=== PATIENT | female | born 1950 | race Caucasian/White ===

== ENCOUNTER 2017-09-14 15:02 | Emergency (ER) | payer OTHER, MEDICARE ==
[~2017-09-14] VITALS: Ht 162.6 cm; Wt 74.2 kg
[~2017-09-14 15:02] MED LIST: Amoxicillin/Clavulanate Potas PO; CITA20TA4 PO; CLON0.5T3 PO; LEVO50TA PO; LISI-461 PO; LPT/20 PO
[2017-09-14 15:11] VITALS: BP 144/98; TEMP 36.7; Ht 162.6 cm; Wt 74.2 kg
--- NOTE | 2017-09-14 15:56 | DIAGNOSTIC IMAGING REPORT ---
CHEST 2 VIEWS ROUTINE CLINICAL HISTORY: 67 years-old Female presenting with eval for pna. TECHNIQUE: PA and lateral views of the chest were obtained. COMPARISON: 07/11/2015. FINDINGS: Atherosclerosis of aortic arch. Cardiac silhouette normal in size. Lungs and pleural spaces clear. Degenerative changes of the thoracic spine. Upper abdomen normal. IMPRESSION: 1. No acute cardiopulmonary disease. Electronically signed by: Nicholas Pena M.D. 09/14/2017 3:54 PM Dictated Date/Time: 09/14/2017 3:54 PM
[2017-09-14 16:18] VITALS: PULSE 66; O2SAT 94
--- NOTE | 2017-09-14 16:28 | EMERGENCY ROOM VISIT NOTE ---
History Report prepared by Jayleen: Brianna Gonzales Under the Supervision of: Dr. Sven Ramos M.D. First contact with patient: 15:18 Chief Complaint: COUGH Stated Complaint: EAR INFECTION, COUGH SORE THROAT Nursing Triage Summary: patient dx with bilateral ear infections and cold last friday. patient followed up with PCP on and was given prednisone and amoxicillin and flonase. patient states she seems to not be getting any better. sore throat, chest congestion, cough and occasional ear pain. History of Present Illness The patient is a 67 year old female who presents to the Emergency Room with complaints of persistent cough starting 2 weeks ago. She has been feeling sick with sore throat, congestion, and cough for the past 2 weeks. She has also had left ear pain. She notes that she is prone to ear infections. Her cough is productive. She has not looked at the color of her sputum. She also lost her voice and is concerned that her voice has not returned back to normal over the past week. She has been becoming increasingly fatigued and is sleeping more than usual. She was seen at an urgent care in [place] 8 days ago and started on a 10 day course of amoxicillin and Flonase. She is still taking the amoxicillin and has had improvement in her ear pain. Her ear is still bothering her occasionally. She followed up with her doctor 3 days ago and was started on prednisone. She has pain in her right rib pain with coughing and deep breaths. She has noticed that when she lies on her right side she coughs and she can feel the pain in her right ribs. She denies any fever, chest pain, or SOB. She had some swelling in her ankles after the 5 hour flight from [place] which has now resolved. She denies any history of blood clots. Source of History: patient Onset: 2 weeks ago Position: other (global) Quality: other (cough) Timing: other (persistent) Associated Symptoms: + sorethroat, + fatigue, No fevers, No chest pain, No SOB Note: Pt reports ear pain, congestion. Review of Systems See HPI for pertinent positives & negatives. A total of 10 systems reviewed and were otherwise negative. Past Medical & Surgical Medical Problems: (1) Hyperlipidemia (2) Hypertension Family History Hypertension Social History Smoking Status: Never Smoker Alcohol Use: none Drug Use: none Marital Status: Housing Status: lives with family Occupation Status: employed Current/Historical Medications Scheduled Atorvastatin (Atorvastatin Calcium), 20 MG PO HS Citalopram Hydrobromide (Citalopram Hydrobromide), 20 MG PO HS Clonazepam (Klonopin), 0.5 MG PO HS Levothyroxine Sodium (Synthroid), 50 MCG PO DAILY Lisinopril (Lisinopril), 10 MG PO HS Allergies Coded Allergies: Sympathomimetics (Verified Adverse Reaction, Intermediate, PALPITATIOJNS, 09/14/17) Ephedrine (Unverified Adverse Reaction, Unknown, Palpatations, 09/14/17) Uncoded Allergies: UNKNOWN OTC COLD MED (Allergy, Unknown, RASH, 09/14/17) Physical Exam Vital Signs Date Time Temp Pulse Resp B/P (MAP) Pulse Ox O2 Delivery O2 Flow Rate FiO2 09/14/17 16:18 66 94 09/14/17 15:11 36.7 73 20 144/98 97 Room Air Physical Exam Constitutional: Vital signs reviewed. Eyes: Pupils are equal round reactive to light. Conjunctiva are noninjected. ENT: Pharynx is clear without erythema or exudate. Mucous membranes are moist. Neck supple without meningeal signs. Respiratory: Clear to auscultation bilaterally. Breath sounds are equal bilaterally. Cardiovascular: Regular rate and rhythm. No rubs or gallops. GI: Soft, nondistended and nontender. Bowel sounds are present. Musculoskeletal: Left sided posterior rib tenderness on palpation. No peripheral edema. No tenderness to the lower extremities. Integumentary: No cyanosis. Neurological: The patient is awake and alert. No focal deficits. Psychiatric: Normal affect. Medical Decision & Procedures ER Provider Diagnostic Interpretation: X-ray results as stated below per interpretation by me and the radiologist: CHEST 2 VIEWS ROUTINE CLINICAL HISTORY: 67 years-old Female presenting with eval for pna. TECHNIQUE: PA and lateral views of the chest were obtained. COMPARISON: 07/11/2015. FINDINGS: Atherosclerosis of aortic arch. Cardiac silhouette normal in size. Lungs and pleural spaces clear. Degenerative changes of the thoracic spine. Upper abdomen normal. IMPRESSION: 1. No acute cardiopulmonary disease. Electronically signed by: Nicholas Pena M.D. 09/14/2017 3:54 PM Dictated Date/Time: 09/14/2017 3:54 PM ED Course 1520: The patient was evaluated in room C7. A complete history and physical exam was performed. 1609: Upon reevaluation, the patient was resting comfortably. I discussed ita's findings with her and reviewed return instructions. She verbalized agreement of the treatment plan. She was discharged home. Medical Decision This is a 67-year-old female who presents with cold symptoms including cough, sore throat and congestion with rib pain. Differential diagnoses include URI, bronchitis, pneumonia, pleural effusion, otitis media, pulmonary embolism. I did perform a limited focused review of portions of the patient's old chart on the electronic medical record. The patient has had no recent pertinent visits to this hospital. I did evaluate the patient as noted above. Patient is presenting with cold symptoms for the past 2 weeks. She does have some rib pain on the right side but her pain is reproducible and only present when she takes a deep breath or coughs. She is not short of breath and denies any chest pain. I did not feel pulmonary embolism was very likely. I did obtain a rapid strep test which is negative. I did order and personally review the patient's chest x-ray as described above. There is no evidence of pneumonia. I did discuss the test results with the patient. I did feel at this time that her symptoms are likely viral in nature and will take some time to go away. I did recommend that she follow closely with her doctor. She was also told to return immediately should she develop any symptoms that may be consistent with pulmonary embolism such as chest pain or shortness of breath. She was discharged in good condition. Medication Reconcilliation Current Medication List: was personally reviewed by me Blood Pressure Screening Patient's blood pressure: Elevated blood pressure Blood pressure disposition: Referred to PCP Impression Primary Impression: Acute bronchitis Additional Impressions: Pharyngitis Rib pain on right side Scribe Attestation The scribe's documentation has been prepared under my direct and personally reviewed by me in its entirety. I confirm that the note above accurately reflects all work, treatment, procedures, and medical decision making performed by me. Departure Information Dispostion Home / Self-Care Referrals Malia Cardoza PA-C Forms HOME CARE DOCUMENTATION FORM, IMPORTANT VISIT INFORMATION Patient Instructions Bronchitis Acute, My [facility], Sore Throats Self Care Additional Instructions You have been examined and treated today on an emergency basis only. This is not a substitute for, or an effort to provide, complete comprehensive medical care. It is impossible to recognize and treat all injuries or illnesses in a single emergency department visit. It is therefore important that you follow up closely with your physician. Call as soon as possible for an appointment. Return for worsening symptoms or if you develop fever, vomiting, chest pain, shortness of breath or any other concerning symptoms. Problem Qualifiers Primary Impression: Acute bronchitis Bronchitis organism: unspecified organism Qualified Codes: J20.9 - Acute bronchitis, unspecified Additional Impressions: Pharyngitis Pharyngitis/tonsillitis etiology: unspecified etiology Qualified Codes: J02.9 - Acute pharyngitis, unspecified
== END 2017-09-14 16:15 | disposition home or self-care (01) ==
LOC: C.EDC 15:28
DX: J20.9 Acute bronchitis, unspecified (principal); R07.81 Pleurodynia; E78.5 Hyperlipidemia, unspecified; I10 Essential (primary) hypertension; Z82.49 Family history of ischemic heart disease and other diseases of the circulatory system

== ENCOUNTER → 2017-12-03 | Day surgery (SDC) | payer OTHER, MEDICARE ==
[2017-11-28 12:13] VITALS: Ht 163.8 cm; Wt 72.7 kg
[~2017-12-03] VITALS: Ht 163.8 cm; Wt 72.7 kg
[~2017-12-03] MED LIST changes: +500ML BSS 0.3ML EPI 1:1000PF IRRIG ONE; +ACETAMINOPHEN 325 MG TAB PO PRN; +AMVISC PLUS 0.8ML SYRINGE INT OCU ONE; +ATOR-22 PO; +ATROPINE SULFATE 0.1 MG/ML 5ML SYR IV PRN; -Amoxicillin/Clavulanate Potas PO; +BSS FLUSH ONE; -CLON0.5T3 PO; +CLON1TAB3 PO; +ENDOCOAT 0.85ML SYRINGE INT OCU ONE; +EpINEphrine INJ 1MG/ML AMP 1 MG/ML AMP ONE; +FENTANYL CITRATE INJ 50 MCG/1 ML 2 ML VIAL ONE; +LACTATED RINGER'S 1000ML 500 ML IV SCH; +LIDOCAINE 4% OP SOLN DROP CHARGE ONE; +LIDOCAINE 4% OP SOLN DROP CHARGE OPR SCH; +LIDOCAINE HCL 1% MPF 2 ML VIAL ONE; -LPT/20 PO; +MIDAZOLAM HCL 1 MG/ML 2ML VIAL ONE; +MIX: 4ML BSS 1ML EPI 1:1000 PF TOP ONE; +MOXIFLOXACIN OPH SOLN PER DROP CHARGE ONE; +OMEP10CA4 PO; +POVIDONE-IODINE OP SOLN 30 ML BTL ONE; +PRLSR20 PO; +PROPARACAINE 0.5% OP SOLN PER DROP CHARGE OPR SCH; +TOBRAMYCIN/DEXAMETHASONE OPH OINT PER APPLN CHARGE ONE
[2017-12-03] MEDS: PHENYLEPHRINE HCL 2.5% OP SOLN PER DROP CHARGE OPR SCH ×3 (09:26→09:36)
[2017-12-03] MEDS: TROPICAMIDE 1% OP SOLN PER DROP CHARGE OPR SCH ×3 (09:27→09:37)
[2017-12-03] MEDS: CYCLOPENTOLATE HCL 1% OP SOLN PER DROP CHARGE OPR SCH ×3 (09:28→09:38)
[2017-12-03] MEDS: MOXIFLOXACIN OPH SOLN PER DROP CHARGE OPR SCH ×3 (09:29→09:39)
--- NOTE | 2017-12-03 09:41 | History & Physical Bridge - SC ---
H&P Re-Evaluation Bridge Note: I have examined the patient, reviewed the History & Physical and in the interval since the performance of the History & Physical I have noted the following changes of clinical significance: No changes noted
--- NOTE | 2017-12-03 10:59 | [facility] Post Operative Brief Note ---
Immediate Operative Summary Operative Date Dec 03, 2017. Pre-Operative Diagnosis Right Eye Cataract Post-Operative Diagnosis same Procedure(s) Performed Right Cataract Phacoemulsification With Intraocular Lens Implant Surgeon Dr. Zoya Cox Live Study Manager Surgeon(s) 0 Estimated Blood Loss 0 Findings Consistent with Post-Op Diagnosis Specimens none Anesthesia Type MAC Complication(s) none Disposition Accompanied Pt To Recovery: no Disposition:
[2017-12-03 11:00] VITALS: TEMP 36.7
--- NOTE | 2017-12-03 11:00 | [facility] Operative Report ---
Operative Report Date of Service Dec 03, 2017. Operative Report DATE OF OPERATION: 12/03/17 PREOPERATIVE DIAGNOSIS: Senile nuclear cataract and astigmatism, right eye POSTOPERATIVE DIAGNOSIS: Senile nuclear cataract and astigmatism, right eye PROCEDURE PERFORMED: Phacoemulsification with toric intraocular lens implantation, right eye SURGEON: Dr. Adi Cox ANESTHESIA: Topical with 1% intracameral lidocaine and monitored anesthesia care COMPLICATIONS: None DESCRIPTION OF PROCEDURE: After positively identifying the patient both verbally and by wristband in the preoperative area, the right eye was marked as the operative eye. Using a Robomarker, the 105 degree axis was marked after placing a drop of proparacaine. The patient was then brought back to the operating room by the anesthesia and nursing staff where they were given a drop of tetracaine and betadine into the operative eye. They were then sterilely prepped and draped in the standard fashion typical for ophthalmic surgery. Steri-strips were placed along the upper eyelids to keep the lashes back, and a lid speculum was placed into the operative eye. At this point, a documented time out was performed with members of the ophthalmology, nursing, and anesthesia staffs all agreeing upon the correct patient, correct location for surgery, correct procedure, and correct type and power of intraocular lens to be implanted. The microscope was then swung into position. Then, a paracentesis wound was made using a sideport blade. Then, in sequence, 1% preservative-free lidocaine followed by Endocoat viscoelastic was injected into the anterior chamber. Next , the main incision was made with a keratome blade in triplanar fashion. A sharp cystotome was introduced into the eye and used to create a tear in the anterior capsule, which was directed into a continuous curvilinear capsulorrhexis using Utrata forceps. Hydrodissection was then performed with BSS on a flat-tip cannula. Next, the phacoemulsification handpiece was introduced into the eye and used to remove the nucleus in a [id number] fashion. This was done without complication and then the irrigation-aspiration handpiece was introduced into the eye and used to remove all remaining cortical and epinuclear material. Amvisc was then injected into the anterior chamber as well as into the capsular bag and using the lens injector system, a [id number] 13.0 D lens, serial number [id number], and expiration date 05/2019 was injected into the capsular bag and rotated into the correct position to correctly line up with the toric marking. Next, the irrigation-aspiration handpiece was used to remove all remaining Amvisc. BSS was used to hydrate the main wound, and then BSS was injected into the paracentesis site to reach physiologic pressure and then the main wound was checked and found to be watertight. The patient was given drops of Vigamox and tobradex ointment into the operative eye, and then the surrounding area was cleaned and dried. A clear plastic shield was placed over the eye and the patient was then sat up and taken from the operating room by the anesthesia staff having tolerated the procedure well and suffering no complications. DISPOSITION: The patient was returned to the recovery room in stable condition. I attest to the content of the Intraoperative Record and any orders documented therein. Any exceptions are noted below.
--- NOTE | 2017-12-03 11:01 | Discharge Instructions-SurgCtr ---
Discharge Instructions Date of Service Dec 03, 2017. Visit Reason for Visit: Right Cataract Discharge Discharge Diagnosis / Problem: right cataract Discharge Goals Goal(s): Decrease discomfort, Improve function Activity Recommendations Activity Limitations: as noted below Anesthesia . Post Anesthesia Instructions: If you have had General Anesthesia or IV Sedation: * Do not drive today. * Resume driving when surgeon permits. * Do not make important decisions or sign legal documents today. * Call surgeon for: 1. Temperature elevations greater than 101 degrees F. 2. Uncontrollable pain. 3. Excessive bleeding. 4. Persistent nausea and vomiting. 5. Medication intolerance (nausea, vomiting or rash). * For nausea and vomiting use only clear liquids such as: tea, soda, bouillon until nausea subsides, then gradually increase diet as tolerated. * If you have any concerns or questions, call your surgeon's office. If physician is unavailable and it is an emergency, call 911 or go to the nearest emergency room. . Instructions / Follow-Up Instructions / Follow-Up ACTIVITY RECOMMENDATIONS: * Light activities. * You may walk outside, read, watch television. * You may notice redness on the white part of the eye and some blurry vision - this is normal. MEDICATIONS: Resume previous medications unless instructed otherwise by your surgeon. Start all eye drops at 1 pm today: * Eye drops (today): Prednisone - one drop in operative eye every 2 hours while awake Polytrim - one drop in operative eye every 2 hours while awake Prolensa - one drop in operative eye daily SPECIAL CARE INSTRUCTIONS: * Tape plastic shield over eye to sleep at night. Call your doctor at with any concerns or problems. FOLLOW UP VISIT: Follow-up with Dr Cox at [place] office as scheduled. Diet Recommendations Home Diet: no limitations Procedures Procedures Performed: Right Cataract Phacoemulsification With Intraocular Lens Implant Pending Studies Studies pending at discharge: no Medical Emergencies . Who to Call and When: Medical Emergencies: If at any time you feel your situation is an emergency, please call 911 immediately. . Non-Emergent Contact Non-Emergency issues call your: Surgeon . . "Provider Documentation" section prepared by Adi Cox. .
[2017-12-03 11:22] VITALS: BP 120/78; PULSE 65; O2SAT 96
--- NOTE | 2017-12-03 11:22 | Anesthesia Progress Nt - [facility] ---
Anesthesia Post Op Note Date & Time Dec 03, 2017 at 11:22 Vital Signs Pain Intensity: 0 Vital Signs Past 12 Hours Date Time Temp Pulse Resp B/P (MAP) Pulse Ox O2 Delivery O2 Flow Rate FiO2 12/03/17 11:00 36.7 65 16 122/84 (97) 98 Room Air 12/03/17 09:19 36.6 81 16 122/86 (98) 96 Room Air Notes Mental Status: alert / awake / arousable, participated in evaluation Pt Amnestic to Procedure: Yes Nausea / Vomiting: adequately controlled Pain: adequately controlled Airway Patency, RR, SpO2: stable & adequate BP & HR: stable & adequate Hydration State: stable & adequate Anesthetic Complications: no major complications apparent
== END | disposition home or self-care (01) ==
LOC: X.SURG 08:59
PROVIDERS: ATTEND Ophthalmology
DX: H25.11 Age-related nuclear cataract, right eye (principal); H52.201 Unspecified astigmatism, right eye; I10 Essential (primary) hypertension; F32.9 Major depressive disorder, single episode, unspecified; E78.00 Pure hypercholesterolemia, unspecified; Z83.3 Family history of diabetes mellitus

== ENCOUNTER → 2017-12-17 | Day surgery (SDC) | payer OTHER, MEDICARE ==
[2017-12-11 15:39] VITALS: Ht 163.8 cm; Wt 72.7 kg
[~2017-12-17] VITALS: Ht 163.8 cm; Wt 72.7 kg
[~2017-12-17] MED LIST changes: -FENTANYL CITRATE INJ 50 MCG/1 ML 2 ML VIAL ONE; +LIDOCAINE 4% OP SOLN DROP CHARGE OPL SCH; -LIDOCAINE 4% OP SOLN DROP CHARGE OPR SCH; +ONDANSETRON INJ 2 MG/ML 2 ML VIAL IV PRN; -PRLSR20 PO; +PROPARACAINE 0.5% OP SOLN PER DROP CHARGE OPL SCH; -PROPARACAINE 0.5% OP SOLN PER DROP CHARGE OPR SCH
[2017-12-17] MEDS: PHENYLEPHRINE HCL 2.5% OP SOLN PER DROP CHARGE OPL SCH ×3 (07:48→08:02)
[2017-12-17] MEDS: TROPICAMIDE 1% OP SOLN PER DROP CHARGE OPL SCH ×3 (07:49→08:03)
[2017-12-17] MEDS: CYCLOPENTOLATE HCL 1% OP SOLN PER DROP CHARGE OPL SCH ×3 (07:50→08:04)
[2017-12-17] MEDS: MOXIFLOXACIN OPH SOLN PER DROP CHARGE OPL SCH ×3 (07:52→08:06)
--- NOTE | 2017-12-17 08:53 | [facility] Post Operative Brief Note ---
Immediate Operative Summary Operative Date Dec 17, 2017. Pre-Operative Diagnosis Cataract Left Eye Post-Operative Diagnosis Same Procedure(s) Performed Left Cataract Phacoemulsification With Intraocular Lens Implant; Toric Lens Surgeon Dr. Cox Radio Frequency Engineer Surgeon(s) None Estimated Blood Loss 0ml Findings Consistent with Post-Op Diagnosis Specimens None Anesthesia Type MAC Complication(s) none Disposition Accompanied Pt To Recovery: no Disposition:
[2017-12-17 08:54] VITALS: TEMP 36.4
--- NOTE | 2017-12-17 08:54 | [facility] Operative Report ---
Operative Report Date of Service Dec 17, 2017. Operative Report DATE OF OPERATION: 12/17/17 PREOPERATIVE DIAGNOSIS: Senile nuclear cataract and astigmatism, left eye POSTOPERATIVE DIAGNOSIS: Senile nuclear cataract and astigmatism, left eye PROCEDURE PERFORMED: Phacoemulsification with toric intraocular lens implantation, left eye SURGEON: Dr. Adi Cox ANESTHESIA: Topical with 1% intracameral lidocaine and monitored anesthesia care COMPLICATIONS: None DESCRIPTION OF PROCEDURE: After positively identifying the patient both verbally and by wristband in the preoperative area, the left eye was marked as the operative eye. Using a Robomarker, the 94 degree axis was marked after placing a drop of proparacaine. The patient was then brought back to the operating room by the anesthesia and nursing staff where they were given a drop of tetracaine and betadine into the operative eye. They were then sterilely prepped and draped in the standard fashion typical for ophthalmic surgery. Steri-strips were placed along the upper eyelids to keep the lashes back, and a lid speculum was placed into the operative eye. At this point, a documented time out was performed with members of the ophthalmology, nursing, and anesthesia staffs all agreeing upon the correct patient, correct location for surgery, correct procedure, and correct type and power of intraocular lens to be implanted. The microscope was then swung into position. Then, a paracentesis wound was made using a sideport blade. Then, in sequence, 1% preservative-free lidocaine followed by Endocoat viscoelastic was injected into the anterior chamber. Next , the main incision was made with a keratome blade in triplanar fashion. A sharp cystotome was introduced into the eye and used to create a tear in the anterior capsule, which was directed into a continuous curvilinear capsulorrhexis using Utrata forceps. Hydrodissection was then performed with BSS on a flat-tip cannula. Next, the phacoemulsification handpiece was introduced into the eye and used to remove the nucleus in a [id number]-[id number] fashion. This was done without complication and then the irrigation-aspiration handpiece was introduced into the eye and used to remove all remaining cortical and epinuclear material. Amvisc was then injected into the anterior chamber as well as into the capsular bag and using the lens injector system, a [id number] 14.5 D lens, serial number [id number], and expiration date 09/2018 was injected into the capsular bag and rotated into the correct position to correctly line up with the toric marking. Next, the irrigation-aspiration handpiece was used to remove all remaining Amvisc. BSS was used to hydrate the main wound, and then BSS was injected into the paracentesis site to reach physiologic pressure and then the main wound was checked and found to be watertight. The patient was given drops of Vigamox and tobradex ointment into the operative eye, and then the surrounding area was cleaned and dried. A clear plastic shield was placed over the eye and the patient was then sat up and taken from the operating room by the anesthesia staff having tolerated the procedure well and suffering no complications. DISPOSITION: The patient was returned to the recovery room in stable condition. I attest to the content of the Intraoperative Record and any orders documented therein. Any exceptions are noted below.
--- NOTE | 2017-12-17 08:55 | Discharge Instructions-SurgCtr ---
Discharge Instructions Date of Service Dec 17, 2017. Visit Reason for Visit: Cataract Left Eye Discharge Discharge Diagnosis / Problem: left cataract Discharge Goals Goal(s): Decrease discomfort, Improve function Activity Recommendations Activity Limitations: as noted below Anesthesia . Post Anesthesia Instructions: If you have had General Anesthesia or IV Sedation: * Do not drive today. * Resume driving when surgeon permits. * Do not make important decisions or sign legal documents today. * Call surgeon for: 1. Temperature elevations greater than 101 degrees F. 2. Uncontrollable pain. 3. Excessive bleeding. 4. Persistent nausea and vomiting. 5. Medication intolerance (nausea, vomiting or rash). * For nausea and vomiting use only clear liquids such as: tea, soda, bouillon until nausea subsides, then gradually increase diet as tolerated. * If you have any concerns or questions, call your surgeon's office. If physician is unavailable and it is an emergency, call 911 or go to the nearest emergency room. . Instructions / Follow-Up Instructions / Follow-Up ACTIVITY RECOMMENDATIONS: * Light activities. * You may walk outside, read, watch television. * You may notice redness on the white part of the eye and some blurry vision - this is normal. MEDICATIONS: Resume previous medications unless instructed otherwise by your surgeon. Start all eye drops at 11 am today: * Eye drops (today): Prednisone - one drop in operative eye every 2 hours while awake Polytrim - one drop in operative eye every 2 hours while awake Prolensa - one drop in operative eye daily SPECIAL CARE INSTRUCTIONS: * Tape plastic shield over eye to sleep at night. Call your doctor at with any concerns or problems. FOLLOW UP VISIT: Follow-up with Dr Cox at [facility] as scheduled. Diet Recommendations Home Diet: no limitations Procedures Procedures Performed: Left Cataract Phacoemulsification With Intraocular Lens Implant; Toric Lens Pending Studies Studies pending at discharge: no Medical Emergencies . Who to Call and When: Medical Emergencies: If at any time you feel your situation is an emergency, please call 911 immediately. . Non-Emergent Contact Non-Emergency issues call your: Surgeon . . "Provider Documentation" section prepared by Adi Cox. .
--- NOTE | 2017-12-17 09:15 | Anesthesiology Progress Note ---
Anesthesia Post Op Note Date & Time Dec 17, 2017 at 09:14 Vital Signs Pain Intensity: 0 Vital Signs Past 12 Hours Date Time Temp Pulse Resp B/P (MAP) Pulse Ox O2 Delivery O2 Flow Rate FiO2 12/17/17 08:54 36.4 63 16 125/79 (94) 96 Room Air 12/17/17 07:32 36.5 65 16 126/84 (98) 93 Room Air Notes Mental Status: alert / awake / arousable, participated in evaluation Pt Amnestic to Procedure: Yes Nausea / Vomiting: adequately controlled Pain: adequately controlled Airway Patency, RR, SpO2: stable & adequate BP & HR: stable & adequate Hydration State: stable & adequate Anesthetic Complications: no major complications apparent
[2017-12-17 09:20] VITALS: BP 121/82; PULSE 63; O2SAT 96
== END | disposition home or self-care (01) ==
LOC: X.SURG 06:48
PROVIDERS: ATTEND Ophthalmology
DX: H25.12 Age-related nuclear cataract, left eye (principal); H52.202 Unspecified astigmatism, left eye; I10 Essential (primary) hypertension; K21.9 Gastro-esophageal reflux disease without esophagitis; F32.9 Major depressive disorder, single episode, unspecified; E78.00 Pure hypercholesterolemia, unspecified; Z88.6 Allergy status to analgesic agent; Z88.8 Allergy status to other drugs, medicaments and biological substances

== ENCOUNTER 2017-12-29 09:06 | Emergency (ER) | payer OTHER, MEDICARE ==
[~2017-12-29] VITALS: Ht 165.1 cm; Wt 74.8 kg
[~2017-12-29 09:06] MED LIST changes: -500ML BSS 0.3ML EPI 1:1000PF IRRIG ONE; -ACETAMINOPHEN 325 MG TAB PO PRN; -AMVISC PLUS 0.8ML SYRINGE INT OCU ONE; -ATROPINE SULFATE 0.1 MG/ML 5ML SYR IV PRN; -BSS FLUSH ONE; -ENDOCOAT 0.85ML SYRINGE INT OCU ONE; -EpINEphrine INJ 1MG/ML AMP 1 MG/ML AMP ONE; -LACTATED RINGER'S 1000ML 500 ML IV SCH; -LIDOCAINE 4% OP SOLN DROP CHARGE ONE; -LIDOCAINE 4% OP SOLN DROP CHARGE OPL SCH; -LIDOCAINE HCL 1% MPF 2 ML VIAL ONE; -MIDAZOLAM HCL 1 MG/ML 2ML VIAL ONE; -MIX: 4ML BSS 1ML EPI 1:1000 PF TOP ONE; -MOXIFLOXACIN OPH SOLN PER DROP CHARGE ONE; -ONDANSETRON INJ 2 MG/ML 2 ML VIAL IV PRN; -POVIDONE-IODINE OP SOLN 30 ML BTL ONE; -PROPARACAINE 0.5% OP SOLN PER DROP CHARGE OPL SCH; -TOBRAMYCIN/DEXAMETHASONE OPH OINT PER APPLN CHARGE ONE
[2017-12-29 09:12] VITALS: TEMP 37.2; Ht 165.1 cm; Wt 74.8 kg
--- NOTE | 2017-12-29 09:53 | DIAGNOSTIC IMAGING REPORT ---
CHEST 2 VIEWS ROUTINE CLINICAL HISTORY: 67 years-old Female presenting with cough not improving over 2 weeks, headache, fatigue. TECHNIQUE: PA and lateral views of the chest were obtained. COMPARISON: 09/14/2017. FINDINGS: Atherosclerosis of the aortic arch. Cardiac silhouette normal in size. Mild bronchial wall thickening suggested. Lungs and pleural spaces clear. Degenerative changes of the thoracic spine. Upper abdomen normal. IMPRESSION: 1. Mild bronchial wall thickening could suggest bronchitis or reactive airways. No focal infiltrate to suggest pneumonia. Electronically signed by: Nicholas Pena M.D. 12/29/2017 9:52 AM Dictated Date/Time: 12/29/2017 9:51 AM
--- NOTE | 2017-12-29 10:09 | EMERGENCY ROOM VISIT NOTE ---
History Report prepared by Jayleen: Jeanie Engel Under the Supervision of: Dr. Deshawn Marcelino D.O. First contact with patient: 09:18 Chief Complaint: COUGH Stated Complaint: COUGH,WALKER,TIRED History of Present Illness The patient is a 67 year old female who presents to the Emergency Room with complaints of a worsening cough beginning CRIME SPECIALIST. The patient states that she has been having cold symptoms for the past couple of weeks. She reports a headache, rhinorrhea, congestion, cough, ear pain, and fatigue. She has felt feverish but has not checked her temperature. She has been taking ibuprofen for her symptoms. The patient rates her pain as a 2/10 in severity. She has not seen her PCP for these symptoms. The patient denies chest pain and pain or swelling in her legs. She has had similar symptoms in the past with pneumonia. Source of History: patient Onset: CRIME SPECIALIST Position: chest Symptom Intensity: 2/10 Quality: other (cough) Timing: worsening Associated Symptoms: + headache, + fatigue, No chest pain Note: Pt reports rhinorrhea, congestion and ear pain. Review of Systems See HPI for pertinent positives & negatives. A total of 10 systems reviewed and were otherwise negative. Past Medical & Surgical Medical Problems: (1) Hyperlipidemia (2) Hypertension Family History Hypertension Social History Smoking Status: Never Smoker Alcohol Use: none Drug Use: none Marital Status: Housing Status: lives with family Occupation Status: employed Current/Historical Medications Scheduled Albuterol Hfa (Ventolin Hfa), 1 PUFF INH Q4 Atorvastatin (Lipitor), 20 MG PO QPM Citalopram Hydrobromide (Citalopram Hydrobromide), 1 TAB PO QAM Clonazepam (Klonopin), 1 MG PO BID Levothyroxine Sodium (Synthroid), 50 MCG PO QAM Lisinopril (Zestril), 10 MG PO HS Omeprazole (Prilosec), 10 MG PO BID Oseltamivir Phosphate (Tamiflu), 75 MG PO BID Allergies Coded Allergies: Ibuprofen (Verified Allergy, Unknown, RASH, 12/29/17) Levofloxacin (Verified Allergy, Unknown, PALPITATION, 12/29/17) Sympathomimetics (Verified Adverse Reaction, Intermediate, PALPITATIOJNS, 12/29/17) Ephedrine (Unverified Adverse Reaction, Unknown, Palpatations, 12/29/17) Uncoded Allergies: UNKNOWN OTC COLD MED (Allergy, Unknown, RASH, 09/14/17) Physical Exam Vital Signs Date Time Temp Pulse Resp B/P (MAP) Pulse Ox O2 Delivery O2 Flow Rate FiO2 12/29/17 11:00 66 16 126/86 97 12/29/17 09:25 Room Air 12/29/17 09:12 37.2 86 20 157/95 96 Room Air Physical Exam GENERAL: Patient is awake, alert, and in no acute distress. Patient is resting comfortably and showing no signs of anxiety EYES: The conjunctivae are clear. The pupils are round and reactive. EARS, NOSE, MOUTH AND THROAT: TMs clear bilaterally. The nose is without any evidence of any deformity. Clear rhinorrhea bilaterally. Mucous membranes are moist tongue is midline. Posterior oropharynx is clear. NECK: The neck is nontender and supple. RESPIRATORY: Normal respiratory effort is noted there is no evidence of wheezing rhonchi or rales CARDIOVASCULAR: Regular rate and rhythm noted there no murmurs rubs or gallops normal S1 normal S2 GASTROINTESTINAL: The abdomen is soft. Bowel sounds are present in all quadrants. Abdomen is nontender MUSCULOSKELETAL/EXTREMITIES: There is no evidence of gross deformity full range of motion is noted in the hips and shoulders SKIN: There is no obvious evidence of any rash. There are no petechiae, pallor or cyanosis noted. NEUROLOGIC: Patient is awake alert and oriented x3 strength is symmetric patellar reflexes are 2+ bilaterally Medical Decision & Procedures ER Provider Diagnostic Interpretation: Radiology results as stated below per my review and radiologist interpretation: CHEST 2 VIEWS ROUTINE CLINICAL HISTORY: 67 years-old Female presenting with cough not improving over 2 weeks, headache, fatigue. TECHNIQUE: PA and lateral views of the chest were obtained. COMPARISON: 09/14/2017. FINDINGS: Atherosclerosis of the aortic arch. Cardiac silhouette normal in size. Mild bronchial wall thickening suggested. Lungs and pleural spaces clear. Degenerative changes of the thoracic spine. Upper abdomen normal. IMPRESSION: 1. Mild bronchial wall thickening could suggest bronchitis or reactive airways. No focal infiltrate to suggest pneumonia. Electronically signed by: Nicholas Pena M.D. 12/29/2017 9:52 AM Dictated Date/Time: 12/29/2017 9:51 AM Laboratory Results Test 12/29/17 09:35 Influenza Type A Antigen POS for Influ A (NEG) Influenza Type B Antigen Neg for Influ B (NEG) Laboratory results per my review. ED Course 0918: The patient was evaluated in room A11B. A complete history and physical examination were performed. 1032: I reassessed the patient at this time. She is feeling better and resting comfortably. I discussed the results and treatment plan with the patient. I answered all pertaining questions that she had. She expressed understanding and verbalized agreement. The patient will be discharged home. Medical Decision Differential diagnosis: Etiologies such as infections, reactive airway disease, pneumonia, pneumothorax , COPD, CHF, cardiac ischemia, pulmonary embolism, musculoskeletal, gastrointestinal, as well as others were entertained. Nursing notes reviewed. The patient is a 67-year-old female who presented to the emergency department for an evaluation of cough. The patient complained of upper respiratory symptoms. Her chest x-ray did not reveal any definite signs of infiltrate. Her flu swab was positive. I do feel that her overall condition does fit with influenza. She was encouraged to continue Tylenol as directed for fever and body aches. She was also encouraged to follow-up with her family doctor for reevaluation but return to the emergency department immediately if symptoms change worsen or the need arises. I discussed patient's laboratory and radiographic studies with her. Medication Reconcilliation Current Medication List: was personally reviewed by me Blood Pressure Screening Patient's blood pressure: Normal blood pressure Impression Primary Impression: Influenza Additional Impression: Bronchitis Scribe Attestation The scribe's documentation has been prepared under my direction and personally reviewed by me in its entirety. I confirm that the note above accurately reflects all work, treatment, procedures, and medical decision making performed by me. Departure Information Dispostion Home / Self-Care Prescriptions Oseltamivir Phosphate (Tamiflu) 75 Mg Cap 75 MG PO BID, #10 CAP Prov: Deshawn Marcelino, DO 12/29/17 Albuterol Hfa (VENTOLIN HFA) 200 Puffs/36500 Mcg Aers 1 PUFF INH Q4, #1 INHALER Prov: Deshawn Marcelino, DO 12/29/17 Referrals Malia Cardoza PA-C (PCP) Forms HOME CARE DOCUMENTATION FORM, IMPORTANT VISIT INFORMATION Patient Instructions ED Flu, My [facility] Additional Instructions Continue to use Tylenol as directed for fever and body aches. Call your family doctor to schedule a follow-up appointment. Try to avoid any strenuous activity. Problem Qualifiers
[2017-12-29 10:15] LABS: INFLUENZA B ANTIGEN Neg for Influ B (NEG)
[2017-12-29] MEDS ORDERED: OSEL75CA23 PO (10:31)
[2017-12-29] MEDS ORDERED: VNTHFA/IN INH (10:31)
[2017-12-29 11:00] VITALS: BP 126/86; PULSE 66; O2SAT 97
== END 2017-12-29 11:08 | disposition home or self-care (01) ==
LOC: C.EDB 09:08 → C.EDA 11:08
DX: J10.1 Influenza due to other identified influenza virus with other respiratory manifestations (principal); J20.9 Acute bronchitis, unspecified; E78.5 Hyperlipidemia, unspecified; I10 Essential (primary) hypertension

== ENCOUNTER 2024-05-06 14:04 | Observation (INO) ==
--- NOTE | 2024-05-05 10:04 | Anesthesiology Consultation ---
Date of Service May 05, 2024 Assessment & Plan (1) Encounter for pre-operative examination: - Infectious disease screening: Per assessment on 05/05/24: No known recent infectious disease contacts or current infectious disease symptoms. - Dementia: PAT RN phone interview indicates that ASHLEY is daughter Светлана Singh but also notes that patient signs own consents. Chart Review Chart Review: Acceptable Risk for Surgery and Patient NOT seen in Pre Admission Testing History Surgery Operation Date: 05/06/24 07:00 Proposed Procedures p Left Distal Radius Open Reduction and Internal Fixation - Raj Guzman MD Height/Weight Height: 5 ft 6 in Weight: 54.431 kg Allergies Allergy/AdvReac Type Severity Reaction Status Date / Time ibuprofen Allergy Mild Rash Verified 05/05/24 13:51 levofloxacin Allergy Mild Palpitation Verified 05/05/24 13:51 s NSAIDS (Non-Steroidal Allergy Mild Rash Verified 05/05/24 13:51 Anti-Inflamma ephedrine AdvReac Mild Palpitation Verified 05/05/24 13:51 s UNKNOWN OTC COLD MED Allergy Mild Rash Uncoded 05/05/24 13:51 Sympathomimetics AdvReac Intermediate Palpitation Uncoded 05/05/24 13:51 s Medications Home Medications Medication Instructions Recorded Confirmed Last Taken levothyroxine 50 mcg tablet 50 mcg PO QAM #90 tabs 05/30/22 05/05/24 Unknown donepezil 10 mg tablet 10 mg PO QAM 04/28/24 05/05/24 Unknown olmesartan 5 mg tablet 5 mg PO QAM 04/28/24 05/05/24 Unknown atorvastatin 40 mg tablet 40 mg PO QAM 05/05/24 05/05/24 Unknown cholecalciferol (vitamin D3) 50 50 mcg PO QAM 05/05/24 05/05/24 Unknown mcg (2,000 unit) capsule citalopram 20 mg tablet 20 mg PO QAM 05/05/24 05/05/24 Unknown lisinopril 10 mg tablet 10 mg PO QAM 05/05/24 05/05/24 Unknown omeprazole 20 mg capsule,delayed 20 mg PO QAM 05/05/24 05/05/24 Unknown release Past Medical History Medical History Anxiety Diffuse cerebral atrophy Fracture of left distal radius (03/2024) Distal radial and ulnar fractures GERD without esophagitis H/O degenerative disc disease History of dementia Per daughter, patient signs own consents + daughter Светлана Singh is POA Hyperlipidemia Hypertension Hypothyroidism Prediabetes "Resolved" s/p weight loss Snores "unable to complete sleep study" Past Family History Family History Father Lung cancer Lung disease Sister Thyroid cancer Diabetes Aunt Breast cancer Ovarian cancer Grandfather (Maternal) Colorectal cancer Other Colonic polyp Denies family history of Prostate cancer Myocardial infarction Past Surgical History Surgical History History of anesthesia reaction Aspiration pneumonia after colonoscopy 5+ years ago requiring admission History of bilateral cataract extraction and lens placement History of surgery on arm (2009) left arm, external fixator History of tonsillectomy and adenoidectomy Hx of blepharoplasty due to eye ptosis Hx of colonoscopy Social History Smoking Status: Never smoker Do You Dip or Chew Tobacco: No Hx Alcohol Use: Yes Alcohol type: hard liquor Hx Substance Use: No Testing Laboratory Results 04/25/24 WBC 7.24 H/H 12.5/38.8 PLATELETS 186 SODIUM 141 POTASSIUM 4.3 CHLORIDE 106 CO2 26 BUN 22 CREATININE 0.9 GLUCOSE 108 UA negative Electrocardiogram Date: 04/25/24 NSR at 77bpm. Possible lateral infarct, age undetermined. Increased R/S ratio in V1, consider early transition or posterior infarct. Compared to 09/27/2022 ECG, NS TWA no longer evident in anterior leads per systems software developer comparison. Chest X-Ray Date: 04/25/24 Findings: + NAD Scoliosis and degenerative change in the spine. Echocardiogram Date: 07/20/20 LVEF 58%. Mild MR/AR. LV wall motion normal. Stress Test Date: 10/11/22 Type: DSE Negative DSE/stress EKG for ischemia at 90% MPHR. PACs. No stress-induced chest pain. LVEF 65-69%. Mild MR/TR. Other Testing CT head/brain Date: 04/25/24 Chronic age related changes but no evidence of acute intracranial pathology.
[2024-05-06] MEDS: LR 60ML/HR IV SCH (12:57)
[~2024-05-06 14:04] MED LIST changes: -ATOR-22 PO; +ATROPINE SULFATE 0.1 MG/ML 10ML SYR IV PRN; -CITA20TA4 PO; -CLON1TAB3 PO; -LEVO50TA PO; -LISI-461 PO; -OMEP10CA4 PO; +ONDANSETRON INJ 2 MG/ML 2 ML VIAL IV PRN; +ROPIVACAINE 0.5% 5 MG/ML 30 ML VIAL ONE; +ePHEDrine sulfate 50 MG/ML AMP IV PRN; +fentaNYL citrate PF 100 MCG/2 ML VIAL IV PRN
[2024-05-06] MEDS: ACETAMINOPHEN 500 MG TAB PO SCH (14:46)
[2024-05-06] MEDS: LR 15ML/HR IV SCH (14:46)
[2024-05-06] MEDS ORDERED: ePHEDrine sulfate 50 MG/ML AMP IV PRN (15:23)
[2024-05-06] MEDS ORDERED: ATROPINE SULFATE 0.1 MG/ML 10ML SYR IV PRN (15:23)
[2024-05-06] MEDS ORDERED: HYDROmorphone INJ 1 MG/ML SYRINGE IV PRN (15:23)
[2024-05-06] MEDS ORDERED: fentaNYL citrate PF 100 MCG/2 ML VIAL IV PRN (15:23)
[2024-05-06] MEDS ORDERED: ONDANSETRON INJ 2 MG/ML 2 ML VIAL IV PRN ×2 (15:23→16:14)
[2024-05-06] MEDS ORDERED: fentaNYL citrate PF 100 MCG/2 ML VIAL ONE (15:24)
[2024-05-06] MEDS ORDERED: MIDAZOLAM HCL 1 MG/ML 2ML VIAL ONE (15:24)
--- NOTE | 2024-05-06 15:52 | History & Physical Bridge Note ---
Date of Service May 06, 2024 History & Physical Bridge Note I have examined the patient, reviewed the History & Physical and in the interval since the performance of the History & Physical I have noted the following changes of clinical significance: no changes noted
[2024-05-06] MEDS: ceFAZolin 2000MG 2,000 MG/15 ML SYR IV SCH (15:54)
[2024-05-06] MEDS ORDERED: ONDANSETRON INJ 2 MG/ML 2 ML VIAL ONE ×2 (16:13→16:19)
[2024-05-06] MEDS ORDERED: PROPOFOL IV EMULSION 10 MG/ML 20 ML VIAL IV ONE (16:13)
[2024-05-06] MEDS ORDERED: ACETAMINOPHEN 1,000 MG/100 ML VIAL IV PRN (16:14)
[2024-05-06] MEDS ORDERED: METOCLOPRAMIDE HCL INJ 5 MG/ML 2 ML VIAL IV PRN (16:14)
[2024-05-06] MEDS ORDERED: MAGNESIUM HYDROXIDE SUSP 30 ML UDC PO PRN (16:14)
[2024-05-06] MEDS ORDERED: bisacodyL 10 MG SUPP PR PRN (16:14)
[2024-05-06] MEDS ORDERED: diphenhydrAMINE Capsule 25 MG CAP PO PRN (16:14)
[2024-05-06] MEDS ORDERED: NALOXONE HCL 0.4 MG/1 ML VIAL/CARP IV PRN (16:14)
[2024-05-06] MEDS ORDERED: PHENYLEPHRINE 100MCG/ML 10ML SYR IV ONE (16:44)
[2024-05-06] MEDS ORDERED: GLYCOPYRROLATE 0.2 MG/ML VIAL ONE (16:44)
[2024-05-06] MEDS: BUPIVACAINE/EPINEPHRINE 0.5% MPF 1:200,000 30 ML VIAL ONE (17:48)
--- NOTE | 2024-05-06 18:14 | Operative Report ---
PG Post Operative Report Pre & Post Diagnosis Operation Date: 05/06/24 07:00 Pre-Op Diagnosis: Fracture of Left Distal Radius Post-Op Diagnosis: Fracture of Left Distal Radius I identified the patient and participated in the time-out.: Yes Procedure Operation Date: 05/06/24 07:00 Actual Procedures p Left Distal Radius Open Reduction and Internal Fixation(Left) - Raj Guzman MD Surgeon Raj Guzman MD Homicide Investigator Lesia Schaeffer PA-C Estimated Blood Loss 25 Findings See Below Comminuted and osteoporotic metaphyseal distal radius fracture in the setting with chronic partial malunion. Stabilized with all Synthes implants: 2.4 variable angle 2column volar distal radius locking plate (5-hole head/2- hole shaft) 2.4 mm cortex screws of 12 mm length x 2. 2.4 variable angle locking screws 12 mm, 16 mm x 2, 20 mm x 5 Specimens None Anesthesia Type General Regional Complications none Disposition Accompanied Patient To Recovery: Yes Disposition: Recovery Room Indications 73-year-old female presented after fall on outstretched hand with a displaced distal radius fracture. She had a history of previous distal radius fracture treated nonsurgically with residual loss of volar tilt. Given the degree of displacement, did offer elective open reduction internal fixation. Her family was concerned about balance issues and her living alone with early dementia. After discussion of the risks, benefits and alternatives of surgical treatment, we agreed that correction of the displacement with internal fixation may assist with the balance issues and her determination to be independent versus prolonged casting. Informed consent was obtained the clinic with the patient, and confirmed with her power of sales agent and daughter. Description of Procedure On the day of surgery, the patient was greeted in the preoperative holding area. The informed consent was reviewed and confirmed by myself and the patient. The patient identified the surgical site and was marked by me. The patient was then turned over to anesthesia. Anesthesia performed a regional anesthetic block with excellent effect. Patient was then taken to the operating place upon the OR table and anesthesia was induced. The airway was secured. The hand table was attached. Splint was taken down. We decontaminated the arm with a thorough scrub using alcohol on four by fours. A nonsterile tourniquet was placed on the forearm. The left upper extremities then prepped and draped usual sterile fashion for wrist surgery. Chloroprep was used. Surgical timeout was called by the circulating nurse and verified by all present. Antibiotics have been infused, and equipment was available and functional. An Esmarch was used to exsanguinate the extremity, and the tourniquet was inflated to 250 mmHg for a total time of about 70 minutes. An incision was marked and then made for the length of the volar plate. Subcutaneous dissection was carried out using Bovie electrocautery. We opened the FCR sheath, and then incised through the sub-sheath. Blunt dissection was carried down to the radial column. The pronator quadratus was thickened with eschar but intact. This was elevated, leaving a cuff for later repair.There was minimal hematoma as there was early healing. We exposed the fracture. Irrigation was carried out. A Bellona was used to reapproximate the palmar side fracture fragments. The Bellona was used to elevate the distal fragment and reduce it upon the proximal fragment cortical lassiter. The cortex was stable and there was some fragmentation. Fluoroscopic imaging confirmed reasonable provisional reduction. There was residual shortening of the radial styloid and chronic malunion from her previous nonsurgically treated fracture. There did appear to be adequate anabaptism of neutral tilt. Volar tilt was not able to be achieved from previous malunion. We then positioned the plate. Multiple fluoroscopic views were taken to ensure good reduction with translation of the distal fragment palmarly against the plate. Used multiple fluoroscopic views to adjust the plate. We then used the carpal translation maneuver to bring the distal fragment to the plate. The oblong hole on the shaft was then used. I fixed the plate to bone, but kept the screw loose enough to adjust the plate. Fluoroscopy was used to administrative judge reduction. The radial styloid had to be pulled out the length using longitudinal traction. The freer was used to adjust the cortical keys in the palmar side, and it seemed to lock in. There was noticeable osteoporosis with the palmar fragments being eggshelllike. We then used the variable angle guide to place the most distal and radial styloid screw. This was done under fluoroscopic guidance. We then placed the remainder of the distal row using the locking guide tower. The second row distal screws were then filled and is well given the osteoporosis. These were all locking screws. Then moved proximally to fasten the plate down to the shaft which further lever the distal fragment now that we had fixation. Locking screw was used at the most proximal hole. We confirmed length and reduction by multiple fluoroscopic views. Final fluoroscopic views were obtained in multiple planes. The second screw along the distal row seem to be close to the articular surface. It was likely safe but I repositioned it to be sure. The screw was backed out then redirected under power to a more proximally. This achieved good purchase in the length was good. The wound was then thoroughly irrigated. The tourniquet was left down for hemostasis. Bovie electrocautery was used minimally. Radial artery was intact. The pronator quadratus was reapproximated using 0 Vicryl stitches. Deep subcutaneous tissue was approximated using interrupted deep Vicryl stitches. The dermal layer was approximate using 3-0 Monocryl suture, followed by running 4-0 Monocryl subcuticular stitch. This is backed up by Steri- Strips. Wound was dressed with sterile Xeroform, sterile gauze, and ABD. Abundant web roll was placed. The arm was then placed in a short arm fiberglass cast that was then bivalved and overwrapped with an Hilario wrap. Patient tolerated the procedure well, recovered from sedation in the operating room, and was transported to the recovery area. Disposition: She will be nonweightbearing and remain in the bivalved cast until follow-up next week. We will plan to overwrap the cast or change it as necessary. Routine postoperative pain medications will be prescribed. Repeat x-rays were performed at the first follow-up appointment in 10-14 days. I attest to the content of the Intraoperative Record and any orders documented therein. Any exceptions are noted below.
--- NOTE | 2024-05-06 19:06 | Anesthesiology Progress Note ---
Date of Service May 06, 2024 Anesthesia Post Procedure Vital Signs Vital Signs: Temp Pulse Resp BP Pulse Ox O2 Del Method O2 Flow Rate 05/06/24 19:00 36.4 C L 76 16 191/103 H 93 Room Air 05/06/24 18:20 36.4 C L 62 18 185/102 H 96 Room Air 05/06/24 18:10 36.5 C 63 19 172/92 H 98 Nasal Cannula 2 05/06/24 18:00 66 18 170/92 H 98 Nasal Cannula 2 05/06/24 17:52 36 C L 65 15 151/97 H 93 Room Air 05/06/24 14:35 36.5 C 66 18 147/96 H 96 Room Air Transfer of Care Handoff Completed per policy Notes Mental Status: alert / awake / arousable and participated in evaluation Patient Amnestic to Procedure: Yes Nausea / Vomiting: adequately controlled Pain: adequately controlled Airway Patency, RR, SpO2: stable & adequate BP & HR: stable & adequate Hydration State: stable & adequate Anesthetic Complications: no major complications apparent and Pt Satisfied with anesthetic care
--- NOTE | 2024-05-06 19:25 | Fluoroscopy Report ---
FL wrist LT 2V CLINICAL HISTORY: LEFT ORIF WRIST COMPARISON STUDY: Left hand radiographs April 28, 2024. Left wrist radiographs April 25, 2024. FLUOROSCOPY TIME: 45.5 seconds. Ka, r: 0.95 mGy FLUOROSCOPIC IMAGES: 4 FINDINGS: Fluoroscopy was provided during open reduction and internal fixation of the distal left rad ial fracture with plate and screws. Fracture alignment appears near anatomic. The hardware is intact. There are no unexpected radiopaque foreign bodies. IMPRESSION: Fluoroscopy provided during open reduction and internal fixation of the distal left radi al fracture. ACT 112: Negative or not required by law. Electronically signed by: Freddy Ferreira M.D. 05/06/2024 7:24 PM
[2024-05-06] MEDS: DOCUSATE SODIUM 100 MG CAP PO SCH (20:47)
[2024-05-06] MEDS: SENNA 8.6 MG TAB PO SCH (20:47)
[2024-05-06] MEDS: SODIUM CHLORIDE 0.9% 1,000 ML IV SCH (20:48)
[2024-05-06] MEDS ORDERED: Nursing to Pharmacy Communication SCH (21:00)
--- OUTSIDE RECORDS SUMMARY | 2024-05-06 22:25 | External Medical Summary | Summary of Care ---
Author Name Unknown Organization [facility] Address [address] [place] [address] Phone [phone] Care Team Providers Care Trade Show Manager Name Role Phone Juliette Summers DO Primary Care Provi alberto Reason for Visit * Reason Onset Date Comments Appointment 04/26/2024 Encounter Details Date Type Department Care Team (Late st Contact Info) Description 04/26/2024 [address], [address] [place] [address] [place] [id number] Services, Scheduling [address] [place] [address] Appointment Allergies Active Allergy Reactions Criticality Noted Date Comments Acetaminophen 09/11/2017 rash Levofloxacin In D5w Rash 07/27/2015 Rash on abdomen Nsaids 03/30/2018 RASH Sympathomimetics 10/19/2001 ENTEX PSE-palpitations & rash documented as of this encounter (statuses as of 05/03/2024) Medications Medication Sig Dispensed Refills Start Date End Date Status Donepezil HCl 10 MG Oral Tablet (ARICEPT) Take 1/2 tablet (5mg) for 30 days, then increase to full tablet (10mg). Take with breakfast. 90 Tab 3 07/03/2020 Active Additional Information Patient taking differently: 10 mg Oral Daily(AM), (No instructions reported), Reported on 01/30/2021 Omeprazole 20 MG Oral Capsule Delayed Release (PriLOSEC)Indication s:Gastroesophageal reflux disease without esophagitis TAKE ONE CAPSULE BY MOUTH EVERY DAY 30 MINUTES BEFORE THE FIRST MEAL OF THE DAY 90 Cap 3 10/09/2020 Active Additional Information Patient taking differently: 20 mg Oral Daily(AM), This med should NOT be Crushed or Chewed, Reported on 01/30/2021 Olmesartan Medoxomil 5 MG Oral Tablet (Benicar)Indications :HTN, goal below 140/90 Take 5 mg by mouth daily. 90 Tab 11 10/17/2020 Active Citalopram Hydrobromide 20 MG Oral Tablet (CeleXA)Indications: Generalized anxiety disorder Take 1 Tab by mouth daily. 14 Tab 2 10/17/2020 Active Atorvastatin Calcium 20 MG Oral Tablet (Lipitor)Indications :Dyslipidemia, goal LDL below 130 TAKE ONE TABLET BY MOUTH EVERY DAY (THIS REPLACES SIMVASTATIN) 90 Tab 3 11/03/2020 Active Additional Information Patient taking differently: 20 mg Oral Daily(AM), (No instructions reported), Reported on 01/30/2021 Levothyroxine Sodium 50 MCG Oral Tablet (Levoxyl)Indications :Hypothyroidism, unspecified type TAKE 1 TABLET BY MOUTH DAILY AT LEAST 30 MINUTES PRIOR TO FIRST MEAL OF THE DAY OR OTHER MEDICATIONS 90 Tab 3 12/05/2020 Active Additional Information Patient taking differently: 50 mcg Oral [id number], (No instructions reported), Reported on 01/30/2021 documented as of this encounter (statuses as of 05/03/2024) Active Problems Problem Noted Date Diagnosed Date Emphysema lung 07/28/2020 Overview: On CXR 06/2020 + emphysematous changes, no symptoms, + secondhand smoke exposure as a child 10/17/2020: discussed diagnosis of COPD with the patient; use combivent PRN SOB/wheezing; declines PFT; stop singulair if post nasal drip is not improved after 30 days Syncope and collapse 07/19/2020 Overview: Jun 2020: echo mild MR, AR; zio patch occasional SVT and brief second degree AV block (ok per cardiology) Sep 2020: EEG ordered, pt declining Mild dementia 07/04/2020 Overview: Neurology 07/03/20: The most important diagnosis in this case is MCI vs mild dementia--she does have some potentially reversible contributions, incl untreated SAUL (possibly) and brain impairing medication (klnopin, for tremor, currently tapering). Her testing may be better than her daily ability. I suspect she may have Alzheimer's disease. MRI not revealing. Reversible labs OK. Diffuse cerebral atrophy 05/31/2020 Overview: MRI brain 04/2020 Slow transit constipation 12/31/2019 DDD (degenerative disc disease), lumbar 11/09/19 15 Overview: X ray 11/13: Moderate degenerative changes. Grade 1 anterolisthesis of L4 on L5. Torticollis, spasmodic 02/07/2014 Overview: Causing head tremor. Neurology recommended mysoline and botox injections. botox given 12/26/15 @ [facility] DDD (degenerative disc disease), cervical 2013 Overview: X ray c spine 08/11: Significant degenerative disc disease is present at C3-4, C4-5, and to a lesser degree at C5-6. PT provided improvement in symptoms. Acquired hypothyroidism 10/10/2010 Overview: Generic Dyslipidemia, goal LDL below 130 11/21/2009 Advance directive discussed with patient 005 Overview: No, Advance Directive brochure given to patient at prior appointment. HTN, goal below 140/90 06/17/2004 Overview: 01/06--stress echo--nml. 11/08--ekg--Sinus bradycardia,Cannot rule out Anterolateral infarct , age undetermined --[facility] stress echo. Gastroesophageal reflux disease without esophagi tis 10/19/2001 Chronic rhinitis 10/19/2001 GENERALIZED ANXIETY DIS 10/19/2001 Overview: zoloft caused insomnia documented as of this encounter (statuses as of 05/03/2024) Resolved Problems Problem Noted Date Diagnosed Date Resolved Date Transaminitis 09/24/2017 07/11/2020 Overview: 03/16: normal liver and gallbladder 04/15: negative hepatitis panel Spasmodic torticollis 04/04/20162016 Overview: botox per [facility] neuro Impaired fasting glucose 12/16/2013 Overview: 12/10 FBG = 107 Encounter for screening for osteoporosis 11/21/2009 09/11/2017 Overview: 08/07--dexa--nml rpt 4 yrs. ( fracture left wrist 05/07)--VD [id number]---43.9 02/11 t lumbar +0.8, femur -0.9; low risk; repeat 5 years Encounter for screening mamm ogram for breast cancer 11/21/2009 03/24/2017 Overview: 11/07-scattered fibroglandular densities.--12/06-same Screening for malignant neoplasm of cervix 11/21/2009 03/24/2017 Overview: 06/04, 10/06--pap --neg. Impaired fasting glucose 11/21/2009 Overview: 07/07--113 Special screening for malign ant neoplasms, colon 05/31/2009 06/17/2019 Overview: 03/30-Colonoscopy done by Dr. Reid. Findings: Redundant colon, hemorrhoids.Repeat 10 yrs. Colonoscopy 07/13: redundant normal colon; developed aspiration pneumonia so declines further colonoscopy ak dorsum right hand 02/21/2009 017 Chondrodermatitis R antihelix 06/17/2006 09/24/2017 Anxiety state 08/12/2012 documented as of this encounter (statuses as of 05/03/2024) Immunizations Name Administration Dates Next Due 06/01/2015,05/03/2014 09/01/2015 COVID-19 mRNA, LNP-s, No Pre serve, 2-Dose Series (KO-SU) 01/09/2021,12/15/2020 Pneumococcal Conjugate Vacc, 13 Valent (Prevnar) 11/03/2014 Pneumococcal Polysaccharide PPV23 (Pneumovax) 06/24/2013 Seasonal Influenza, PF, 6 M & above, IM , (FluLaval or Fluzone) 06/28/2020,06/17/2019,08/04/2018,11/0 11/2016 Seasonal Influenza, Quadriva lent, No Preserve, IM 08/26/2016,07/10/2015 Seasonal Influenza, Split, I IV3, With Preserve, Inj 07/20/2014,06/24/2013,07/10/2012,07/30,08/14/2010,10/21/2009,08/09/20 08,07/28/2007,08/01/2006 TD - Tetanus/Diptheria (ADULT) 09/05/1997 TDAP (age 10 and older)(Boostrix) 10/13/2013 Varicella Zoster Vaccine (Adult) 02/16/2010 Zoster Vaccine Recombinant (Shingrix) 10/22/2020 ,07/11/2020 documented as of this encounter Social History Tobacco Use Types Packs/Day Years Used Date Smoking Tobacco: Never Smokeless Tobacco: Never Comments:h/o passive smoke e xposure Alcohol Use Standard Drinks/Week Comments No 0 (1 standard drink = 0.6 oz pur e alcohol) PHQ-2 Answer Date Recorded PHQ-2 Score 3 12/09/2019 Exercise Vital Sign Answer Date Recorde d Days of Exercise per Week 0 days 2018 Minutes of Exercise per Session Not on file 06/17/2019 Hunger Vital Sign Answer Date Recorded Worried About Running Out of Food in the Last Ye ar Never true 12/09/2019 Ran Out of Food in the Last Year Never true 12/09/2019 Utilities Answer Date Recorded Do you have trouble paying y our heating, water, or electric bill? (Adult - for ages 18 years and over) Not on file 03/16/2024 Is your family able to pay t he heat, water, or electric bill? (Household - for ages 0-17 years) Not on file 03/16/2024 Does your family have access to good internet? (Household - for ages 0-17 years) Not on file 03/16/2024 Social Connections Answer Date Recorded How often do you feel lonely or isolated from those around you? (Adult - for ages 18 years and over) Not on file 03/16/2024 Sex and Gender Information Value Date Recorded Sex Assigned at Female 01/04/2019 10:31 AM EDT Gender Identity Female 01/04/2019 10:31 AM EDT Sexual Orientation Straight 01/04/2019 10 :31 AM EDT Job Start Date Occupation Industry Not on file Not on file Not on file documented as of this encounter Functional Status Functional Status Response Date of Assess ment Are you deaf or do you have serious difficulty h earing? No 07/19/2020 Are you blind or do you have serious difficulty seeing, even when wearing glasses? No 07/19/2020 Do you have serious difficul ty walking or climbing stairs? (5 years old or older) No 07/19/2020 Do you have difficulty dress ing or bathing? (5 years old or older) No 07/19/2020 Because of a physical, menta l, or emotional condition, do you have difficulty doing errands alone such as visiting a doctor s office or shopping? (15 years old or older) No 07/19/20 20 Cognitive Status Response Date of Assessm ent Because of a physical, menta l, or emotional condition, do you have serious difficulty concentrating, remembering, or making decisions? (5 years old or older) No 07/19/2020 documented as of this encounter Miscellaneous Notes * Telephone Encounter - Lesia Thompson TECH - 05/03/2024 3:00 PM EDT Orion Elizondo DO 04/27/24 11:03 AM Note I contacted the patient today for follow-up of her left distal radius fracture status post closed reduction on 04/25/2024 at [facility]. Patient reports that she is currently scheduled at [facility] for follow-up of her left wrist. She had a previous fracture of her distal radius which underwent surgical intervention years ago. She wanted to follow-up with the same provider. She reports her appointment is scheduled today. * Telephone Encounter - Jo Booth OSA - 04/27/2024 9:20 AM EDT Called left a message for patient that we have a walk in clinic. We our open from 8 am to 4:00 pm. * Telephone Encounter - Sydnee Saleh OSA - 04/26/2024 7:16 AM EDT Good Morning, Patient has a order for Other closed fracture of distal end of left radius, initial encounter Other closed fracture of distal end of left ulna, initial encounter DOI:04/24/24 fell went to [facility] 04/25/24 splinted notes an imaging in [facility].Please advise Thank you SAUL Uribe documented in this encounter Plan of Treatment Scheduled Procedures Name Priority Associated Diagnoses Date/Ti me COLONOSCOPY FLEXIBLE PROXIMA L DIAGNOSTIC Recall Family history of colonic polyps Health Maintenance Due Date Last Done Comments Albumin/Creatinine Ratio 1966 Alpha-1 Antitrypsin 1966 Colonoscopy 07/10/2020 07/10/2015, 07/10/2015 *COPD SEVERITY VERIFIED BY PFT 07/31/2020 Depression Screening 12/08/2020 12/09/2019 DXA Scan 02/14/2021 02/15/2016, 07/31, 08/18/2009, Additional history exists TSH 01/30/2022 01/30/2021, 09/30, 06/28/2020, Additional history exists COVID-19 Vaccine ( season) 2023 01/09/2021, 12/15/2020 DTaP,Tdap,and Td Vaccines (2 - Td or Tdap) 10/13/2023 10/13/2013, 09/05/1997, 09/05/1997 Influenza Vaccine (FLU shot) (#1) 2024 06/28/2020, 06/17/2019, 08/04/2018, Additional history exists Mammogram 08/19/2024 08/19/2023, 03/31, 11/17/2018, Additional history exists GFR 04/25/2025 04/25/2024, 08/31, 01/30/2021, Additional history exists O2 ASSESSMENT COMPLETED IN PAST YEAR FOR COPD 04/25/2025 04/25/2024 Pneumococcal Vaccine: 65+ Years Completed 11/03/2014, 06/24/2013 RETIRED - COLONOSCOPY-EVERY 5 YRS AGES 18-100 Discontinued 07/10/2015, 07/10/2015 Zoster Vaccines Completed 10/22/2020, 06/29, 02/16/2010 HPV (Gardasil) Vaccine Aged Out No lo nger eligible based on patient's age to complete this topic Hepatitis B Vaccine Aged Out No longe r eligible based on patient's age to complete this topic MENINGOCOCCAL (MENACTRA/MENVEO) Aged Out No longer eligible based on patient's age to complete this topic documented as of this encounter Medical Devices Not on filedocumented as of this encounter Advance Directives * Full Code (Latest Code Status on File) Date Activated Date Inactivated Comments 07/19/2020 3:03 PM 07/20/2020 8:20 PM This order reflects the patients wishes and were consensually agreed upon. Question Answer Comments Discussion of Advance Directives occurred with: Family Does the patient have a Living Will? No Does the patient have Health Care Power of Attor nicho? No Care Teams Trade Show Manager Relationship Specialty Start Date End Date Juliette Summers DO [address] [facility] [place] [id number] PCP - General Family Medicine 04/25/24 documented as of this encounter
[2024-05-07] MEDS: ceFAZolin 2000MG 2,000 MG/15 ML SYR IV SCH (00:37)
[2024-05-07 07:28] VITALS: BP 152/85; RESP 16; TEMP 99.3; O2SAT 93
[2024-05-07] MEDS: oxyCODONE HCL IR 5 MG TAB (IMMEDIATE RELEASE) PO PRN (08:10)
[2024-05-07] MEDS: ATORVASTATIN 40 MG TAB PO SCH (08:11)
[2024-05-07] MEDS: MULTIVITAMIN TAB PO SCH (08:11)
[2024-05-07] MEDS: DONEPEZIL HCL 10 MG TAB PO SCH (08:11)
[2024-05-07] MEDS: CITALOPRAM 20 MG TAB PO SCH (08:11)
[2024-05-07] MEDS: lisinopril 10 MG TAB PO SCH (08:11)
[2024-05-07] MEDS: PANTOprazole 40 MG TAB PO SCH (08:11)
[2024-05-07] MEDS: CHOLECALCIFEROL 25 MCG (1000 UNITS) TAB PO SCH (08:11)
--- NOTE | 2024-05-07 10:24 | Orthopedic Progress Note ---
Date of Service May 07, 2024 Assessment & Plan (1) H/O left wrist surgery: - Patient is postop day 1 from her left wrist ORIF. She was placed in a bivalved cast. This should remain on until her outpatient postop check. We would like to see her either this upcoming Friday or next Friday for cast check. -Did discuss with her strict elevation of the left upper extremity. -Pain control as per protocol. -Would appreciate evaluation by physical therapy/Occupational Therapy as well as case management for safe discharge. She is stable orthopedically at this time. Subjective Operation Date: 05/06/24 07:00 Actual Procedures p Left Distal Radius Open Reduction and Internal Fixation(Left) - Raj Guzman MD Patient is postop day 1 from her left distal radius ORIF. She was placed in a bivalved cast after her surgery. She is eating breakfast at my visit this morning. She states she is doing well. States her pain is controlled at this time. Does have some swelling in her hand and fingers, other than that she is doing well. No other questions or concerns. Review of Systems All systems reviewed & are unremarkable except as noted in HPI & below. Physical Exam General: Alert and oriented. No acute distress. Left wrist: Cast is in place. Does have some edema in the hand, however she remains neurovascularly intact. Does not have significant pain in the hand either. Psychiatric A+Ox3, euthymic affect Results & Data Results & Data Laboratory Results . Diagnostic Findings . PG Care Time/CCT Total # of Minutes Spent Total Time Spent with Patient: Total time spent is greater than 50% in coordination of care (as documented) at patient's floor/unit and/or counseling patient: Coding Level of Care Code 65815 Post Operative Follow-Up Diagnoses H/O left wrist surgery Z98.890
--- NOTE | 2024-05-07 10:29 | Discharge Summary ---
Date of Service May 07, 2024 Admission HPI Per Admitting Provider 73-year-old female presented after fall on outstretched hand with a displaced distal radius fracture. She had a history of previous distal radius fracture treated nonsurgically with residual loss of volar tilt. Given the degree of displacement, did offer elective open reduction internal fixation. Her family was concerned about balance issues and her living alone with early dementia. After discussion of the risks, benefits and alternatives of surgical treatment, we agreed that correction of the displacement with internal fixation may assist with the balance issues and her determination to be independent versus prolonged casting. Informed consent was obtained the clinic with the patient, and confirmed with her power of attorney lawyer and daughter. Admission Exam (Per Admitting) Constitutional Left wrist: Splint was not taken down in pre-op. She was placed in Thompson cast after surgery. NV intact upon transfer from PACU to hospital room. Discharge Data Procedures Performed Operation Date: 05/06/24 07:00 Actual Procedures p Left Distal Radius Open Reduction and Internal Fixation(Left) - Raj Guzman MD Hospital Course (1) H/O left wrist surgery: - Patient is postop day 1 from her left wrist ORIF. She was placed in a bivalved cast. This should remain on until her outpatient postop check. We would like to see her either this upcoming Friday or next Friday for cast check. -Did discuss with her strict elevation of the left upper extremity. -Pain control as per protocol. -Would appreciate evaluation by physical therapy/Occupational Therapy as well as case management for safe discharge. She is stable orthopedically at this time. DISPO: Home health is in the works with case management. Coding Level of Care Code None Diagnoses H/O left wrist surgery Z98.890
[2024-05-07 13:37] VITALS: PULSE 76
== END 2024-05-07 14:34 | disposition home health service (06) ==
LOC: ASU 14:04 → 3N 14:04